=== PATIENT | male | born 1985 | race Caucasian/White ===

== ENCOUNTER 2019-10-13 05:06 | Emergency (ER) | payer OTHER ==
[2019-10-13] MEDS ORDERED: LIDOCAINE 1% 10 ML VIAL INJ ONE (05:19)
[2019-10-13] MEDS ORDERED: POVIDONE IODINE 10 % 15 ML UD TOP ONE (05:22)
--- NOTE | 2019-10-13 05:23 | ED.PDOC ---
History of Present Illness - General Chief Complaint: Lower Extremity Injury Stated Complaint: My toe is bleeding Time Seen by Provider: 10/13/19 05:18 Source: patient, RN notes reviewed, Vital Signs reviewed Exam Limitations: no limitations - History of Present Illness Initial Comments: 34 y/o male brought in by law enforcement. He lacerated L 5th toe on unknown object as he was walking to vehicle. He has been drinking. Occurred: just prior to arrival Pain - Lower Extremity: mild: Left Foot Method of Injury: incised Worsening Factors: nothing Allergies/Adverse Reactions: Allergies NO KNOWN ALLERGY Allergy (Verified 10/13/19 05:16) Home Medications: Ambulatory Orders NK 10/13/19 Review of Systems - Review of Systems Constitutional: States: no symptoms reported Musculoskeletal: States: other - toe lac Physical Exam - Physical Exam General Appearance: Alert, No apparent distress Neck: full range of motion, supple Foot: laceration - sole of 5th toe 2 cm lac MTP fold Procedures - Laceration/Wound Repair Left Volar Toe Wound's Depth, Shape: into muscle Wound Explored: no foreign body removed Irrigated w/ Saline (cc's): 200 Betadine Prep?: No Anesthesia: 1% Lidocaine Volume Anesthetic (cc's): 2 Wound Debrided: cleansed with gauze Wound Repaired With: sutures Suture Size/Type: 4:0, nylon Number of Sutures: 5 Layer Closure?: No Sterile Dressing Applied?: No Splint Applied?: No Departure - Departure Clinical Impression: Laceration of toe Time of Disposition: 05:49 Disposition: Discharge to Home or Self Care Condition: Good Departure Forms: ED Discharge - Pt. Copy, Patient Portal Self Enrollment Instructions: DI for Trauma, DI for Leg Pain Home Medications: Ambulatory Orders NK 10/13/19
[2019-10-13 06:03] VITALS: BP 152/93; TEMP 98.3; O2SAT 95
== END 2019-10-13 06:00 | disposition home or self-care (01) ==
LOC: ER 05:06
DX: S91.115A Laceration without foreign body of left lesser toe(s) without damage to nail, initial encounter (principal); W26.8XXA Contact with other sharp object(s), not elsewhere classified, initial encounter; Y92.9 Unspecified place or not applicable